=== PATIENT | female | born 1995 | race African-American/Black ===

== ENCOUNTER 2019-10-19 18:31 | Emergency (ER) | payer SELFPAY ==
[~2019-10-19] VITALS: Ht 172.7 cm; Wt 63.0 kg
[2019-10-19] MEDS ORDERED: LORAZEPAM 2MG/ML CPJ ONE (19:53)
[2019-10-19] MEDS ORDERED: HALOPERIDOL LACTATE 5MG/ML VIAL IM ONE ×2 (20:00→22:00)
[2019-10-19] MEDS ORDERED: SODIUM CHLORIDE 0.9% 1,000 ML IV ONE (20:00)
[2019-10-19] MEDS ORDERED: LORAZEPAM 2MG/ML CPJ IM NR (20:00)
[2019-10-19] MEDS ORDERED: HALOPERIDOL LACTATE 5MG/ML VIAL IM NR (20:00)
[2019-10-19 20:51] LABS: BASOPHILS % 0.4 % (0.0-2.0); HEMATOCRIT. 38.1 % (36.0-48.0); HEMOGLOBIN. 13.1 g/dL (12.0-16.0); LYMPHOCYTES % 15.9 % (20.0-50.0); MEAN CORPUSCULAR HEMOGLOBIN 29.5 pg (28.0-32.0); MEAN CORPUSCULAR VOLUME 85.5 fL (81.0-99.0); MEAN PLATELET VOLUME 7.5 fl (7.4-10.4); MONOCYTES % 5.7 % (2.0-8.0); PLATELET 412 x1000/uL (130-400); RED BLOOD CELL COUNT 4.45 mill/uL (4.2-5.4); RED CELL DISTRIBUTION WIDTH 15.3 % (11.6-14.6)
[2019-10-19 20:59] LABS: CHLORIDE 108 mEq/L (98-107)
[2019-10-19 21:02] LABS: ETHANOL BLOOD < 10 mg/dL
[2019-10-19 21:08] LABS: HCG SCREEN NEGATIVE
[2019-10-19] MEDS ORDERED: LORAZEPAM 2MG/ML CPJ IM ONE (22:00)
[2019-10-19] MEDS ORDERED: DIPHENHYDRAMINE 50MG/ML VIAL IM ONE (22:00)
[2019-10-19 23:37] LABS: CLARITY URINE TURBID (CLEAR); COLOR URINE ORANGE (YELLOW); KETONES URINE TRACE (NEGATIVE); LEUKOCYTE ESTERASE URINE 1+ (NEGATIVE); NITRITE URINE NEGATIVE (NEGATIVE); OCCULT BLOOD URINE 3+ (NEGATIVE); PROTEIN URINE 2+ (NEGATIVE); SPECIFIC GRAVITY URINE 1.028 (1.005-1.030)
[2019-10-20 00:07] LABS: *BARBITURATES SCREEN URINE NEGATIVE (NEGATIVE)
[2019-10-20 00:08] LABS: *COCAINE SCREEN URINE NEGATIVE (NEGATIVE); METHADONE URINE SCREEN NEGATIVE (NEGATIVE); PHENCYCLIDINE URINE SCREEN NEGATIVE (NEGATIVE)
[2019-10-20 00:35] LABS: *AMPHETAMINES SCREEN URINE PRESUMTIVE POSITIVE (NEGATIVE); *BENZODIAZEPINES SCREEN URINE PRESUMTIVE POSITIVE (NEGATIVE); CANNABINOID URINE SCREEN PRESUMTIVE POSITIVE (NEGATIVE); OPIATES URINE SCREEN PRESUMTIVE POSITIVE (NEGATIVE)
[2019-10-20 12:00] VITALS: BP 120/78
== END 2019-10-20 13:44 | disposition home or self-care (01) ==
LOC: ER 18:31
DX: R46.2 Strange and inexplicable behavior (principal); F60.0 Paranoid personality disorder; R41.82 Altered mental status, unspecified; R45.1 Restlessness and agitation; F15.10 Other stimulant abuse, uncomplicated; F12.10 Cannabis abuse, uncomplicated; F13.20 Sedative, hypnotic or anxiolytic dependence, uncomplicated; Z98.890 Other specified postprocedural states
CPT/HCPCS: 36415; 70450; 80053; 80305; 80307; 80320; 80329; 81003; 81025; 82962; 84484; 84703; 85025; 93005; 96360; 96372; 99284; J1630; J2060; Z7610; J1200; G0480